=== PATIENT | male | born 1970 | race Caucasian/White ===

== ENCOUNTER 2016-11-17 18:04 | Emergency (ER) | payer SELFPAY | END 2016-11-17 19:58 | disposition left against medical advice (07) | LOC: ER1 18:04 | DX: Z53.21 Procedure and treatment not carried out due to patient leaving prior to being seen by health care provider (principal) ==

== ENCOUNTER → 2016-11-29 | Outpatient (CLI) | payer OTHER ==
[~2016-11-29] MED LIST: LEXAPRO5 MG PO; NOVOLIN N100 UNIT/1 SC
[2016-11-29 13:35] LABS: HEMOGLOBIN 13.1 gm/dl (14.0-17.5); RED BLOOD COUNT 4.56 M/UL (4.20-5.50); WHITE BLOOD COUNT 5.5 K/UL (4.5-11.0)
[2016-11-29 13:59] LABS: BUN/CREATININE RATIO 14 (0-10)
== END ==
LOC: LAB 13:01
PROVIDERS: Internal Medicine
DX: Z11.59 Encounter for screening for other viral diseases (principal); F11.20 Opioid dependence, uncomplicated; Z20.5 Contact with and (suspected) exposure to viral hepatitis; Z72.89 Other problems related to lifestyle
CPT/HCPCS: 80053; 80074; 85027; 87390

== ENCOUNTER → 2016-12-11 | Outpatient (CLI) | payer OTHER | LOC: KOH-I 14:59 | DX: M54.2 Cervicalgia (principal); M54.5 Low back pain; M54.6 Pain in thoracic spine; M43.16 Spondylolisthesis, lumbar region | CPT/HCPCS: 72050; 72070; 72110 ==

== ENCOUNTER 2017-01-28 10:59 | Inpatient (IN) | payer OTHER ==
[~2017-01-28] VITALS: Ht 165.1 cm; Wt 53.1 kg
[2017-01-28 12:32] LABS: HEMOGLOBIN 9.8 gm/dl (14.0-17.5); RED BLOOD COUNT 3.51 M/UL (4.20-5.50); WHITE BLOOD COUNT 13.4 K/UL (4.5-11.0)
[2017-01-29 04:58] LABS: HEMOGLOBIN 10.5 gm/dl (14.0-17.5); RED BLOOD COUNT 3.8 M/UL (4.20-5.50)
[2017-01-29 04:59] LABS: WHITE BLOOD COUNT 8.6 K/UL (4.5-11.0)
[2017-01-29 22:34] LABS: BUN/CREATININE RATIO 28 (0-10)
[2017-01-30 04:04] LABS: HEMOGLOBIN 10.2 gm/dl (14.0-17.5); RED BLOOD COUNT 3.71 M/UL (4.20-5.50); WHITE BLOOD COUNT 8.5 K/UL (4.5-11.0)
[2017-01-30 04:31] LABS: BUN/CREATININE RATIO 26 (0-10)
[2017-01-31 03:37] LABS: HEMOGLOBIN 11.9 gm/dl (14.0-17.5)
[2017-01-31 03:41] LABS: RED BLOOD COUNT 4.29 M/UL (4.20-5.50); WHITE BLOOD COUNT 10.7 K/UL (4.5-11.0)
[2017-01-31 03:52] LABS: BUN/CREATININE RATIO 21 (0-10)
[2017-02-01 03:48] LABS: HEMOGLOBIN 11.3 gm/dl (14.0-17.5); RED BLOOD COUNT 4.06 M/UL (4.20-5.50); WHITE BLOOD COUNT 8.2 K/UL (4.5-11.0)
[2017-02-01 04:14] LABS: BUN/CREATININE RATIO 28 (0-10)
[2017-02-01] MEDS ORDERED: NOVOLIN N100 UNIT/1 SC ×2 (07:36→07:37)
[2017-02-01] MEDS ORDERED: LEXAPRO5 MG PO (16:52)
== END 2017-02-01 17:30 | disposition home or self-care (01) | DRG 637 ==
LOC: ER1 10:59 → CCU 14:00 → ZEROF 14:00 → CCU 17:34
PROVIDERS: Family Medicine; Internal Medicine Nephrology; Student in an Organized Health Care Education/Training Program; ADMIT Internal Medicine
DX: E10.10 Type 1 diabetes mellitus with ketoacidosis without coma (principal); G93.41 Metabolic encephalopathy; E87.1 Hypo-osmolality and hyponatremia; N17.9 Acute kidney failure, unspecified; M62.82 Rhabdomyolysis; E44.0 Moderate protein-calorie malnutrition; E86.0 Dehydration; E87.5 Hyperkalemia; J44.9 Chronic obstructive pulmonary disease, unspecified; D64.9 Anemia, unspecified; F17.210 Nicotine dependence, cigarettes, uncomplicated; F32.9 Major depressive disorder, single episode, unspecified; Z91.19 Patient's noncompliance with other medical treatment and regimen; Z79.4 Long term (current) use of insulin; Z68.20 Body mass index [BMI] 20.0-20.9, adult; Z88.6 Allergy status to analgesic agent; Z88.8 Allergy status to other drugs, medicaments and biological substances
CPT/HCPCS: 36415; 36600; 71010; 80048; 80053; 80061; 80307; 81001; 82043; 82436; 82550; 82553; 82570; 82728; 82803; 82962; 83036; 83540; 83550; 83735; 84100; 84133; 84156; 84300; 84439; 84443; 84484; 85025; 85027; 87040; 87086; 93005; 94640; 94664; 96361; 96372; 96374; 99291; G0480; J1756; J1815; J1940; J1956; J2270; J2405; J2930; J7030; J7050; Q0162